=== PATIENT | female | born 1995 | race Caucasian/White ===

== ENCOUNTER 2023-12-20 14:23 | Emergency (ER) | payer OTHER, SELFPAY ==
[2023-12-20] VITALS (7 sets, daily range): BP systolic 150–187; BP diastolic 77–96; PULSE 53–89; RESP 16–19; TEMP 36.7; O2SAT 96–100
--- NOTE | 2023-12-20 14:31 | DI.CT.S_ITS ---
PROCEDURE: CT HEAD/BRAIN WO CON INDICATIONS: Pain behind the right eye TECHNIQUE: Noncontrast 4.5 mm thick angled axial sections acquired from the foramen magnum to the vertex, with coronal and sagittal reformats. For radiation dose reduction, the following was used: automated exposure control, adjustment of mA and/or kV according to patient size. COMPARISON: None. FINDINGS: Image quality: Diagnostic. CSF spaces: Basal cisterns are patent. No extra-axial fluid collections. Ventricles are normal in size and shape. Brain: No midline shift. No intracranial masses or hemorrhage. Finney-white matter interface is normal. Skull and face: Calvarium and visualized facial bones are intact, without suspicious lesions. Sinuses: Visualized sinuses and mastoids are clear. IMPRESSION: No acute intracranial pathology. Dictated by: Alyson Guerra M.D. on 12/20/2023 at 15:02 Approved by: Alyson Guerra M.D. on 12/20/2023 at 15:03
--- NOTE | 2023-12-20 14:33 | ED_ITS ---
HPI - Headache General Chief Complaint: Headache Stated Complaint: migraine wont go away t-3 Time Seen by Provider: 12/20/23 14:27 History of Present Illness HPI Narrative: 28-year-old female with no reported past medical history presents for headache for 3 days. Patient has been taking Tylenol and ibuprofen at home without relief. Went to the walk-in clinic yesterday where she received a shot of Toradol and discharged home. She states she has persistent frontal squeezing head pain. She states that she was never been diagnosed with migraines before and she has never had to go to the emergency department for headache in the past. Reports associated nausea and sound sensitivity. Patient History Social History Smoking Status: Never smoker Exam Narrative Exam Narrative: Const: Awake, alert, wearing sunglasses, appears uncomfortable Cardiac: regular rate, regular rhythm RESP: unlabored, clear bilaterall Skin: Warm, Dry, intact, no rashes Neuro: AO x3, CN II-XII grossly intact, moves all extremities Initial Vital Signs Initial Vital Signs: Vital Signs Temperature 98.1 F 12/20/23 14:36 Pulse Rate 81 12/20/23 14:36 Respiratory Rate 19 12/20/23 14:36 Blood Pressure 187/96 H 12/20/23 14:36 Pulse Oximetry 100 12/20/23 14:36 Oxygen Delivery Method Room Air 12/20/23 14:36 Course Orders Ordered: ED Orders 12/20/23 14:31 CT head/brain wo con Stat Discontinued Medications Diphenhydramine HCl (Diphenhydramine 50 Mg/Ml Vial) 50 mg IV NOW ONE Stop: 12/20/23 14:32 Last Admin: 12/20/23 14:44 Dose: 50 mg Documented By: AMISHA Acetaminophen (Ofirmev) 1,000 mg in 100 mls @ 400 mls/hr IV NOW ONE Stop: 12/20/23 14:45 Last Infusion: 12/20/23 15:09 Dose: Infused Documented By: Admin: 12/20/23 14:40 Dose: 400 mls/hr Documented By: AMISHA Sodium Chloride (Normal Saline 0.9%) 1,000 mls @ 1,000 mls/hr IV BOLUS ONE Stop: 12/20/23 15:30 Last Admin: 12/20/23 14:44 Dose: 1,000 mls/hr Documented By: AMISHA Metoclopramide HCl (Metoclopramide 10 Mg/2 Ml Inj) 10 mg IV NOW ONE Stop: 12/20/23 14:32 Last Admin: 12/20/23 14:40 Dose: 10 mg Documented By: AMISHA Vital Signs Vital signs: Vital Signs - 8 hr 12/20/23 14:36 Temperature 98.1 F Pulse Rate 81 Respiratory Rate 19 Blood Pressure 187/96 H Pulse Oximetry 100 Oxygen Delivery Method Room Air MDM - Headache Differential Diagnosis Differential diagnosis: Likely migraine, tension headache and subarachnoid hemorrhage Lab Data Labs: Urine Dip Bedside Urine Glucose Negative Bedside Urine Bilirubin - Negative Bedside Urine Ketone - Negative Urine Specific Thornton 1.005 Bedside Urine Occult Blood - Negative Bedside Urine pH 6.0 Bedside Urine Protein - Negative Bedside Urine Urobilinogen - Negative Bedside Urine Nitrite - Negative Bedside Urine Leukocytes - Negative Esterase MDM Narrative Medical decision making narrative: Three days of headache and nausea. Patient states normally pain goes away with Tylenol and ibuprofen but it was persisted. She states that she has never been to the ER for a headache before. Since this is a new pattern headache for the patient a CT will be ordered. Patient has been given multiple medications for migraines with significant improvement in symptoms. CT brain report negative for acute intracranial pathology. Patient counseled on imaging findings, recommended close PCP follow up if she continues to have headaches she was never been formally diagnosed with migraine headaches. Discharge Plan Departure Patient Disposition: Home Clinical Impression: Headache Instructions: DI for Headache Activity Restrictions/Additional Instructions: You may continue to take Tylenol and ibuprofen as needed for symptoms. Make sure to stay hydrated and drink plenty of fluids. Follow up with the primary care doctor if you continue to have headaches. Stand Alone Forms: Patient Portal/API
[2023-12-20] MEDS: METOCLOPRAMIDE 10 MG/2 ML INJ IV (14:40)
[2023-12-20] MEDS: ACETAMINOPHEN IV 1,000 MG/100 ML VIAL 400 MG IV (14:40)
[2023-12-20] MEDS: diphenhydrAMINE 50 MG/ML VIAL IV (14:44)
[2023-12-20] MEDS: SODIUM CHLORIDE 0.9% 1,000 ML 1000 ML IV (14:44)
== END 2023-12-20 16:22 | disposition home or self-care (01) ==
PROVIDERS: Emergency Provider Emergency Medicine
DX: R51.9 Headache, unspecified (principal)
CPT/HCPCS: 36415; 70450; 81003; 96365; 96375; 99284; J0136; J1200; J2765